=== PATIENT | male | born 1975 | race Caucasian/White ===

== ENCOUNTER → 2019-05-05 | Outpatient (CLI) | payer OTHER ==
--- NOTE | 2019-05-05 09:20 | Diagnostic Imaging Report ---
Exam: KUB - 2 views Indication: Renal calculus Comparison: CT abdomen and pelvis of 12/05/2014 Findings: 3 mm calculus at the lower pole the right kidney. Measurement is essentially unchanged compared to the CT of 12/05/2014. No other radiographically apparent urinary calculi. Nonobstructive bowel gas pattern. No free air. The osseous structures appear unremarkable. Small phleboliths in the pelvis. Impression: 3 mm right lower pole renal calculus. Signed by: Catracho Cummings MD on 05/05/2019 9:16 AM
--- NOTE | 2019-05-05 10:08 | Diagnostic Imaging Report ---
EXAM: Renal Ultrasound INDICATION: Hydronephrosis. Calculus of kidney ^[id number] ^[id number] ^CALCULUS OF KIDNEY/HYDRONEPHROSIS COMPARISON: CT scan 12/05/2014 TECHNIQUE: Transverse and longitudinal images of the kidneys and bladder were obtained. FINDINGS: Right Kidney: Length: 11.5 x 4.9 x 4.7 cm Appearance: Normal echogenicity. Collecting system: No hydronephrosis Stones: None Cyst/Mass: None Left Kidney: Length: 11.6 x 4.7 x 4.8 cm Appearance: Normal echogenicity. Collecting system: No hydronephrosis Stones: None Cyst/Mass: None Bladder: Normal. Bilateral ureteral jets not seen IMPRESSION: Normal renal ultrasound exam. Signed by: Dr. Ronan Guy M.D. on 05/05/2019 10:05 AM
== END ==
LOC: US 08:23
PROVIDERS: ATTEND Urology
DX: N13.30 Unspecified hydronephrosis (principal); N20.0 Calculus of kidney
CPT/HCPCS: 74018; 76770